=== PATIENT | male | born 1995 | race Hispanic/Latino ===

== ENCOUNTER 2019-09-28 21:55 | Emergency (ER) | payer SELFPAY ==
--- NOTE | 2019-09-28 22:40 | Emergency Department Report ---
<COLLETTE LUGOJARETT Escalante - Last Filed: 09/29/19 00:55> ED Psych HPI - General Chief Complaint: Psych Stated Complaint: SUICIDAL IDEALIZATION Time Seen by Provider: 09/28/19 22:31 Source: patient Mode of arrival: Ambulatory Limitations: No Limitations - History of Present Illness Initial Comments: Patient is a 24-year-old male that presents emergency room with complaints of suicidal ideations. Patient states his plan is to overdose. Patient states he been using a lot of drugs lately. Patient states the drugs have been making the thoughts of hurting himself worse. Patient states he is depressed. Patient denies homicidal ideation. Patient denies hallucinations. Patient denies any physical complaints. Patient denies recent travel. Patient denies recent international travel. Patient denies exposure to the novel coronavirus. Patient denies sick contacts. Patient denies fever and chills. Patient denies cough. Patient denies diarrhea. Patient denies coming in contact with anybody with symptoms of the novel coronavirus. MD Complaint: suicidal ideation, feels depressed -: Sudden Associated Psychiatric Symptoms: depression, suicidal ideation History of same: Yes Improves With: none Worsens With: none Context: recent drug abuse Associated Symptoms: denies other symptoms If Self Harm: admits thoughts of, has plan - Related Data Allergies Allergy/AdvReac Type Severity Reaction Status Date / Time bee pollen Allergy Angioedema Verified 09/21/19 16:17 Penicillins Allergy Angioedema Verified 09/21/19 16:17 ED Review of Systems Constitutional: denies: chills, fever Eyes: denies: eye pain, eye discharge, vision change ENT: denies: ear pain, throat pain Respiratory: denies: cough, shortness of breath, wheezing Cardiovascular: denies: chest pain, palpitations Endocrine: no symptoms reported Gastrointestinal: denies: abdominal pain, nausea, diarrhea Genitourinary: denies: urgency, dysuria Musculoskeletal: denies: back pain, joint swelling, arthralgia Skin: denies: rash, lesions Neurological: denies: headache, weakness, paresthesias Psychiatric: depression, suicidal thoughts. denies: anxiety Hematological/Lymphatic: denies: easy bleeding, easy bruising ED Past Medical Hx - Past Medical History Previous Medical History?: Yes Hx Psychiatric Treatment: Yes - Surgical History Past Surgical History?: No - Family History Family history: no significant - Social History Smoking Status: Current Some Day Smoker Substance Use Type: Cocaine, Methamphetamines ED Physical Exam - General General appearance: alert, in no apparent distress - Head Head exam: Present: atraumatic, normocephalic - Eye Eye exam: Present: normal appearance - ENT ENT exam: Present: mucous membranes moist - Neck Neck exam: Present: normal inspection - Respiratory Respiratory exam: Present: normal lung sounds bilaterally. Absent: respiratory distress - Cardiovascular Cardiovascular Exam: Present: regular rate, normal rhythm. Absent: systolic murmur, diastolic murmur, rubs, gallop - GI/Abdominal GI/Abdominal exam: Present: soft, normal bowel sounds - Rectal Rectal exam: Present: deferred - Extremities Exam Extremities exam: Present: normal inspection - Back Exam Back exam: Present: normal inspection - Neurological Exam Neurological exam: Present: alert, oriented X3 - Psychiatric Psychiatric exam: Present: flat affect - Skin Skin exam: Present: warm, dry, intact, normal color. Absent: rash ED Course - Reevaluation(s) Reevaluation #1: Initial valuation done. Patient placed on a ER hold. 09/28/19 22:39 Reevaluation #2: I discussed all results and clinical findings with patient. I discussed plan of care with patient. Patient agrees with plan of care. Patient is medically cleared. Patient will remain in the ER as an ER hold until the patient's final disposition comes from our mental health and psychiatry team. 09/29/19 00:55 ED Medical Decision Making - Lab Data Result diagrams: 09/29/19 Unknown 09/28/19 23:08 - Medical Decision Making Patient is a 24-year-old male that presents emergency room with suicidal ideations and depression. Patient has a plan to overdose. Patient was recently here. Patient placed on a ER hold. Patient had labs done which were unremarkable. Patient is medically cleared. Patient is final disposition will come from our psychiatry mental health team. - Differential Diagnosis Depression, suicidal ideations, drug use. ED Disposition Clinical Impression: Suicidal ideation Disposition: DC-01 TO HOME OR SELFCARE Is pt being admited?: No Does the pt Need Aspirin: No Condition: Stable Instructions: Suicide Prevention for Adults (ED) Additional Instructions: OUTPATIENT MENTAL HEALTH RESOURCES [facility], [facility] Nery Bates MD: [address], [address] [place] [address] [place], [place] [id number] [place] [facility]: [facility] [address] [place] [address] [place] [address] [phone] Outpatient COMMUNITY Behavioral Health Resources: [facility] ([facility]) [address] [place] [address] / Thursday thru Thursday - 8am - 5pm [facility] Address: [address] [place] [address] Thursday thru Thursday- 7am-2pm [facility] Address: [address] [place] [address] Thursday thru Thursday: 8:30AM-5PM CRISIS RESOURCES [place] Crisis Line: Suicide Prevention Line: Crisis Text Line: Text START to [phone] Emergency: 911 Referrals: PRIMARY CARE, [Primary Care Provider] - 3-5 Days Time of Disposition: 00:56 <TODD CASEY - Last Filed: 10/01/19 15:50> ED Review of Systems ROS: Stated complaint: SUICIDAL IDEALIZATION Other details as noted in HPI ED Course Vital Signs 09/28/19 09/28/19 09/29/19 22:35 22:45 02:15 Temperature 98.1 F 98.2 F Pulse Rate 64 66 Respiratory 16 16 16 Rate Blood Pressure 106/74 Blood Pressure 106/74 115/45 [Left] O2 Sat by Pulse 95 95 96 Oximetry 09/29/19 09/29/19 09/29/19 10:13 20:00 20:12 Temperature 98.0 F 98.3 F Pulse Rate 90 60 Respiratory 16 16 16 Rate Blood Pressure Blood Pressure 107/65 96/58 [Left] O2 Sat by Pulse 97 98 98 Oximetry 09/30/19 09/30/19 09/30/19 07:55 08:00 20:30 Temperature 98.2 F Pulse Rate 77 Respiratory 16 18 18 Rate Blood Pressure Blood Pressure 116/67 [Left] O2 Sat by Pulse 99 97 97 Oximetry 10/01/19 08:42 Temperature 97.8 F Pulse Rate 66 Respiratory 18 Rate Blood Pressure Blood Pressure 115/68 [Left] O2 Sat by Pulse 100 Oximetry ED Medical Decision Making - Lab Data Result diagrams: 09/29/19 Unknown 09/28/19 23:08 - Medical Decision Making Patient has been evaluated by our psychiatric team and advised that patient to be discharged home. Patient currently denying any suicidal or homicidal ideation. No visual or auditory hallucination. Patient is medically and psychiatrically stable for discharge. Critical care attestation.: If time is entered above; I have spent that time in minutes in the direct care of this critically ill patient, excluding procedure time.
[2019-09-28 23:46] LABS: Amphetamine Screen,Urine PRESUMPTIVE NEGATIVE; Benzodiazepines Screen,Urine PRESUMPTIVE NEGATIVE; Cannabinoid Screen,Urine PRESUMPTIVE NEGATIVE; Cocaine Screen,Urine PRESUMPTIVE NEGATIVE; Methadone Screen,Urine PRESUMPTIVE NEGATIVE; Opiate Screen,Urine PRESUMPTIVE NEGATIVE
[2019-09-28 23:50] LABS: Bilirubin,Urine NEG (Negative); Blood,Urine SM (Negative); Color,Urine Yellow (Yellow); Mucus,Urine FEW /HPF; Protein,Urine <15 mg/dL mg/dL (Negative); Urobilinogen,Urine < 2.0 mg/dL (<2.0)
[2019-09-28 23:53] LABS: BUN/Creatinine Ratio 11; Blood Urea Nitrogen 9 mg/dL (9-20); Calcium 9.7 mg/dL (8.4-10.2); Hemolysis Index 9
[2019-09-28 23:56] LABS: Basophils % (Auto) 0.4 % (0.0-1.8); Eosinophils # (Auto) 0.1 K/mm3 (0.0-0.4); Hematocrit 43.4 % (35.5-45.6); Hemoglobin 15.4 gm/dl (11.8-15.2); Lymphocytes # (Auto) 2.3 K/mm3 (1.2-5.4); Lymphocytes % (Auto) 31.7 % (13.4-35.0); Mean Corpuscular HGB Conc 36 % (32-34); Mean Corpuscular Volume 96 fl (84-94); Monocytes # (Auto) 0.7 K/mm3 (0.0-0.8); Platelet Count 241 K/mm3 (140-440); Red Blood Count 4.54 M/mm3 (3.65-5.03); Red Cell Distribution Width 14.3 % (13.2-15.2)
[2019-10-01 08:43] VITALS: BP 115/68
== END 2019-10-01 21:06 | disposition home or self-care (01) ==
LOC: ED 21:55 → EEVIPCON 21:55 → ED 10-01 21:06
DX: R45.851 Suicidal ideations (principal); F32.9 Major depressive disorder, single episode, unspecified; F17.200 Nicotine dependence, unspecified, uncomplicated; Z88.0 Allergy status to penicillin; Z88.8 Allergy status to other drugs, medicaments and biological substances
CPT/HCPCS: 36415; 80048; 80307; 80320; 81001; 85025; G0480

== ENCOUNTER 2020-10-30 21:11 | Emergency (ER) | payer OTHER ==
[~2020-10-30 21:11] MED LIST: HALOPERIDOL LACTATE 5 MG/1 ML INJ IM ONE
[2020-10-30] MEDS ORDERED: HALOPERIDOL LACTATE 5 MG/1 ML INJ IM ONE (21:30)
[2020-10-30] MEDS ORDERED: HALOPERIDOL LACTATE 5 MG/1 ML INJ ONE (23:57)
--- NOTE | 2020-10-31 02:08 | Emergency Department Report ---
<TODD CASEY - Last Filed: 10/31/20 03:15> ED General Adult HPI - General Stated complaint: ABD PAIN Time Seen by Provider: 10/30/20 23:54 - Related Data Allergies Allergy/AdvReac Type Severity Reaction Status Date / Time bee pollen Allergy Angioedema Verified 10/31/20 03:43 Penicillins Allergy Angioedema Verified 10/31/20 03:43 ED Medical Decision Making - Medical Decision Making Labs reviewed and is unremarkable. Patient is medically cleared to be evaluated by our psychiatric team. ED Disposition Clinical Impression: Acute psychosis, Schizophrenia Disposition: 01 HOME / SELF CARE / HOMELESS Condition: Stable Additional Instructions: Professional and Agency Contacts To help Resolve Crises(01/09) OR Crisis Line: Suicide Prevention Line: Crisis Text Line: Text START to [phone] Emergency: 911 Outpatient COMMUNITY Behavioral Health Resources: [facility]: [facility] [address] [place], [place] [address] [address] [facility] [address] [place] [address] Thursday thru Thursday - 8am - 5pm [facility] Address: [address] [place] [address] [place]: [facility] Address: [address] [place] [address] Thursday thru Thursday- 7am-2pm [facility] Address: [address] [id number] Thursday thru Thursday: 8:30AM-5PM Referrals: PRIMARY CARE, [Primary Care Provider] - 3-5 Days <DELBERT DOUGLAS - Last Filed: 10/31/20 14:26> ED Medical Decision Making - Lab Data Result diagrams: 10/30/20 13:00 10/30/20 01:00 ED Disposition Is pt being admited?: No Does the pt Need Aspirin: No <SHANNEN HARLEY - Last Filed: 11/03/20 11:39> ED General Adult HPI - History of Present Illness Initial comments: Patient presents by EMS with abdominal pain. He is nonverbal and would not provide any cogent history. He simply writes on a piece of paper and when he writes is not cogent or coherent. When asked simple yes/no questions, he will occasionally answer. He does admit to having abdominal pain. Staff noticed patient is state that he is normally verbal. We have no other history on this gentleman. Again, he will not answer questions or verbalize. ED Review of Systems ROS: Stated complaint: ABD PAIN Other details as noted in HPI Comment: Unobtainable due to pts medical conditions ED Past Medical Hx - Past Medical History Hx Psychiatric Treatment: Yes Additional medical history: Cannot be obtained secondary to patient's altered mental status - Social History Smoking Status: Current Some Day Smoker Substance Use Type: Cocaine, Methamphetamines ED Physical Exam - General Limitations: Altered Mental Status, Other (Patient remains nonverbal and somewhat interactive) General appearance: alert, in no apparent distress - Head Head exam: Present: atraumatic, normocephalic - Eye Eye exam: Present: normal appearance, EOMI. Absent: scleral icterus - ENT ENT exam: Present: normal orophraynx, mucous membranes moist - Neck Neck exam: Present: normal inspection. Absent: meningismus - Respiratory Respiratory exam: Present: normal lung sounds bilaterally. Absent: respiratory distress - Cardiovascular Cardiovascular Exam: Present: regular rate, normal rhythm - GI/Abdominal GI/Abdominal exam: Present: soft. Absent: tenderness - Extremities Exam Extremities exam: Present: normal capillary refill. Absent: pedal edema - Back Exam Back exam: Present: full ROM - Neurological Exam Neurological exam: Present: alert, normal gait, other (Patient is nonverbal. He will not interact.) - Psychiatric Psychiatric exam: Present: other (Patient will not verbally interact.) - Skin Skin exam: Present: warm, dry ED Course Vital Signs 10/31/20 10/31/20 08:26 09:00 Temperature 97.9 F Pulse Rate 88 Respiratory 20 Rate Blood Pressure 122/65 [Left] O2 Sat by Pulse 98 100 Oximetry - Reevaluation(s) Reevaluation #1: 10/30/20 23:56 IV labs were ordered. Patient was given Haldol. There is some concern that this could be psychiatric in nature. Reevaluation #2: 11/03/20 11:38 Paperwork has been completed during downtime. Ultimately, the patient was signed out to another provider pending psychiatric disposition. ED Medical Decision Making - Lab Data Result diagrams: 10/30/20 13:00 10/30/20 01:00 Critical Care Time: No Critical care attestation.: If time is entered above; I have spent that time in minutes in the direct care of this critically ill patient, excluding procedure time.
[2020-10-31 03:22] LABS: Basophils % (Auto) 0.4 % (0.0-1.8); Eosinophils # (Auto) 0.1 K/mm3 (0.0-0.4); Eosinophils % (Auto) 2.2 % (0.0-4.3); Hemoglobin 14.6 gm/dl (11.8-15.2); Lymphocytes # (Auto) 2.2 K/mm3 (1.2-5.4); Lymphocytes % (Auto) 34.4 % (13.4-35.0); Mean Corpuscular HGB Conc 36 % (32-34); Mean Corpuscular Volume 96 fl (84-94); Monocytes # (Auto) 0.6 K/mm3 (0.0-0.8); Monocytes % (Auto) 9.1 % (0.0-7.3); Platelet Count 194 K/mm3 (140-440); Red Blood Count 4.27 M/mm3 (3.65-5.03); Red Cell Distribution Width 13.4 % (13.2-15.2)
[2020-10-31 03:35] LABS: Amphetamine Screen,Urine PRESUMPTIVE NEGATIVE; Benzodiazepines Screen,Urine PRESUMPTIVE NEGATIVE; Cannabinoid Screen,Urine PRESUMPTIVE NEGATIVE; Cocaine Screen,Urine PRESUMPTIVE NEGATIVE; Methadone Screen,Urine PRESUMPTIVE NEGATIVE; Opiate Screen,Urine PRESUMPTIVE NEGATIVE
[2020-10-31 03:42] LABS: BUN/Creatinine Ratio 19; Blood Urea Nitrogen 17 mg/dL (9-20); Calcium 9.5 mg/dL (8.4-10.2)
[2020-10-31 03:43] LABS: Alanine Aminotransferase 17 units/L (7-56); Albumin 4.5 g/dL (3.9-5); Hemolysis Index 3
[2020-10-31 08:27] VITALS: BP 122/65
--- NOTE | 2020-10-31 11:16 | Event Note ---
No current medical issues or needs. Awaiting treatment recommendations from psychiatric team. Vital signs are stable.
--- NOTE | 2020-10-31 11:24 | Consultation ---
History of Present Illness - Reason for Consult Consult date: 10/31/20 Reason for consult: mental health eval - History of Present Psychiatric Illness Per ED Note: Patient presents by EMS with abdominal pain. He is nonverbal and would not provide any cogent history. He simply writes on a piece of paper and when he writes is not cogent or coherent. When asked simple yes/no questions, he will occasionally answer. He does admit to having abdominal pain. Staff noticed patient is state that he is normally verbal. We have no other history on this gentleman. Again, he will not answer questions or verbalize. Hayden Perez is a 25 year old male with history of Bipolar disorder who presents to the ED with abdominal pain. In my interview with the patient, he is calm. The patient presents with dysarthria which made it difficult to understand him. The patient states he came to the ED to "cool off before I punch my grandma." unable to get details due to the patients difficulty with speech. He denies any current suicidal/homicidal ideation and denies hallucinations. PAST PSYCHIATRIC HISTORY Diagnoses:Bipolar disorder Suicide attempts or Self-harm behavior: Denies Prior psychiatric hospitalizations: Yes Substance Abuse history: Crack, Meth Previous psychiatric medications tried: Hall Geodon Outpatient treatment: Unknown PAST MEDICAL HISTORY: Family Psychiatric History: Not available SOCIAL HISTORY Marital Status: Single Living Arrangements: Unknown Employment Status: Unemployed Access to guns/weapons: None reported Education: unknown History of Abuse: Unknown Legal History: None reported REVIEW OF SYSTEMS Constitutional: Negative for weight loss ENT: Negative for stridor Respiratory: Negative for cough or hemoptysis All other systems reviewed and are negative MENTAL STATUS EXAMINATION General Appearance and Behavior: Age appropriate, good hygiene, wearing appropriate clothes, good eye contact, cooperative polite with questioning. Cooperation: Participating/engaged Psychomotor Behavior: unremarkable and within normal limits Mood: "ok" Affect and affective range: Incongruent with mood Thought Process: Tangential Thought Content: Not Suicidal Speech: Normal volume, Regular rate and rhythm Intellectual Functioning:Below average Suicidal Ideation: Denies Homicidal Ideation:Denies Hallucinations: Denies Impulse Control: Questionable Insight and Judgment: Limited insight and poor judgment Memory: Normal Attention: Divided Orientation: Alert, oriented Assessment and Plan (1) Schizophrenia Current Visit: Yes Status: Acute F20.9 RECOMMENDATIONS DC 1013 Risks, benefits and alternatives of medications discussed with the patient, questions answered and consent obtained from patient. PSYCHOTHERAPY: Supportive psychotherapy provided MEDICAL: Per primary team DELIRIUM PRECAUTIONS: Please re-orient patient frequently, keep lights on during the day, and minimize benzodiazepines and opiates as these medications could worsen patient's confusion. EXECUTIVE SOUS CHEF: Per medical team DISPOSITION: Do not recommend acute inpatient psychiatric hospitalization at this time FOLLOW-UP: Will sign off. Client Application Support Engineer will provide the patient with outpatient resources. Thank you for the consult. Please contact with any questions and/or concerns. Medications and Allergies Medications and Allergies Allergies Allergy/AdvReac Type Severity Reaction Status Date / Time bee pollen Allergy Angioedema Verified 10/31/20 03:43 Penicillins Allergy Angioedema Verified 10/31/20 03:43 Mental Status Exam - Vital signs Last Vital Signs Temp 97.9 F 10/31/20 08:26 Pulse 88 10/31/20 08:26 Resp 20 10/31/20 08:26 BP 122/65 10/31/20 08:26 Pulse Ox 98 10/31/20 08:26 Results Result Diagrams: 10/30/20 13:00 10/30/20 01:00 Abnormal lab results 10/30/20 10/30/20 Range/Units 01:00 13:00 MCV 96 H (84-94) fl MCH 34 H (28-32) pg MCHC 36 H (32-34) % [facility] % (Auto) 9.1 H (0.0-7.3) % Sodium 136 L (137-145) mmol/L Glucose 130 H (75-100) mg/dL All other labs normal.
== END 2020-10-31 17:00 | disposition home or self-care (01) ==
LOC: ED 21:11
DX: F20.9 Schizophrenia, unspecified (principal); F17.200 Nicotine dependence, unspecified, uncomplicated; F14.90 Cocaine use, unspecified, uncomplicated; F15.90 Other stimulant use, unspecified, uncomplicated; Z91.030 Bee allergy status; Z88.0 Allergy status to penicillin; Z79.899 Other long term (current) drug therapy
CPT/HCPCS: 36415; 80053; 80307; 85025; 96372; 99283; J1630; 80320; G0480